=== PATIENT | male | born 1965 | race Two or more races ===

== ENCOUNTER 2023-07-04 11:29 | Inpatient (IN) | payer MEDICAID ==
[~2023-07-04] VITALS: Ht 175.3 cm; Wt 91.0 kg
[2023-07-04 12:19] LABS: ANION GAP 7 mmol/L (8-16); CALCIUM, TOTAL 9.5 mg/dL (8.8-10.5); CARBON DIOXIDE 29 mmol/L (22-29); CHLORIDE 102 mmol/L (98-107); CREATININE 0.96 mg/dL (0.60-1.30); GLOMERULAR FILTR. RATE CALC > 60 mL/min (>60); GLUCOSE,RANDOM 156 mg/dL (70-110); POTASSIUM 4.2 mmol/L (3.5-5.1); SODIUM SERUM 138 mmol/L (136-145); UREA NITROGEN, BLOOD 17 mg/dL (7-18)
[2023-07-04 12:25] LABS: ALANINE AMINOTRANSFERASE 20 U/L (12-78); ALBUMIN 3.4 g/dL (3.4-5.0); ALKALINE PHOSPHATASE 70 U/L (46-116); ASPARTATE AMINOTRANSFERASE 16 U/L (15-37); BILIRUBIN,TOTAL 0.3 mg/dL (0.1-1.0); TOTAL PROTEIN, SERUM 7.8 g/dL (6.4-8.2)
[2023-07-04 12:30] LABS: TROPONIN I-HIGH SENSITIVITY 2158 ng/L (<76)
[2023-07-04 12:33] LABS: HEMATOCRIT 40.5 % (41-53); HEMOGLOBIN 13.8 g/dL (13.5-17.5); MEAN CORPUSCULAR HEMOGLOBIN 29.3 pg (26.0-34.0); MEAN CORPUSCULAR HGB CONC 34.2 G/dL (31.0-37.0); MEAN CORPUSCULAR VOLUME 86 fL (80-100); PLATELET COUNT (AUTO) 334 K/uL (150-450); RED BLOOD CELL COUNT(AUTO) 4.72 MIL/uL (4.50-5.90); RED CELL DISTRIBUTION WIDTH 13.2 % (11.5-14.5); WHITE BLOOD COUNT (AUTO) 8.7 K/uL (4.5-11.0)
[2023-07-04] MEDS: NITROGLYCERIN 2% (1 GM=INCH) OINTMENT PACKET TP ONE (12:52)
[2023-07-04] MEDS: ASPIRIN 325 MG TABLET PO ONE (12:52)
[2023-07-04 12:59] LABS: CHOL/HDL RATIO 5.7 (4.2-7.3); CHOLESTEROL 195 mg/dL (131-200); HDL CHOLESTEROL 34 mg/dL (40-60); LDL CHOL (CALC.) 127 mg/dL (0-130); LIPASE 37 U/L (16-77); TRIGLYCERIDES 169 mg/dL (15-150)
[2023-07-04 13:01] LABS: PROTHROMBIN TIME 10.8 SEC (9.4-11.6)
[2023-07-04 13:11] LABS: BAND NEUTROPHILS % (MANUAL) 5 % (0-5); LYMPHOCYTES % (MANUAL) 24 % (22-44); MONOCYTES % (MANUAL) 1 % (2-9); SEGMENTED NEUTROPHILS % 70 % (40-70); TOTAL CELLS COUNTED 100
[2023-07-04 13:31] LABS: LACTIC ACID 1.3 mmol/L (0.4-2.0)
[2023-07-04 13:36] LABS: TROPONIN I-HIGH SENSITIVITY 2483 ng/L (<76)
[2023-07-04] MEDS ORDERED: BISACODYL 10 MG RECTAL RECTAL SUPPOSITORY PR PRN (15:45)
[2023-07-04] MEDS ORDERED: ACETAMINOPHEN 325 MG TABLET PO PRN (15:45)
[2023-07-04] MEDS ORDERED: MAGNESIUM HYDROXIDE SUSPENSION 30 ML UDCUP PO PRN (15:45)
[2023-07-04] MEDS ORDERED: ONDANSETRON HCL 4 MG/2 ML VIAL IVP PRN (15:45)
[2023-07-04] MEDS ORDERED: MORPHINE SULFATE 2 MG/ML SYRINGE IVP PRN (15:45)
[2023-07-04] MEDS ORDERED: HEPARIN SODIUM,PORCINE 5,000 UNITS/ML VIAL IVP PRN ×2 (15:45)
[2023-07-04] MEDS ORDERED: HYDROCODONE/ACETAMINOPHEN 5-325 MG TABLET PO PRN (15:45)
[2023-07-04] MEDS ORDERED: ZOLPIDEM TARTRATE 5 MG TABLET PO PRN (15:45)
[2023-07-04] MEDS ORDERED: HEPARIN SODIUM,PORCINE 5,000 UNITS/ML VIAL SQ SCH (16:00)
[2023-07-04 16:24] LABS: HEMATOCRIT 40.2 % (41-53); HEMOGLOBIN 13.8 g/dL (13.5-17.5); MEAN CORPUSCULAR HEMOGLOBIN 29.4 pg (26.0-34.0); MEAN CORPUSCULAR HGB CONC 34.4 G/dL (31.0-37.0); MEAN CORPUSCULAR VOLUME 85 fL (80-100); PLATELET COUNT (AUTO) 342 K/uL (150-450); RED BLOOD CELL COUNT(AUTO) 4.71 MIL/uL (4.50-5.90); RED CELL DISTRIBUTION WIDTH 13.1 % (11.5-14.5); WHITE BLOOD COUNT (AUTO) 9.5 K/uL (4.5-11.0)
[2023-07-04 16:37] LABS: PROTHROMBIN TIME 10.9 SEC (9.4-11.6)
[2023-07-04 17:13] LABS: BAND NEUTROPHILS % (MANUAL) 0 % (0-5)
[2023-07-04 17:14] LABS: EOSINOPHILS % (MANUAL) 8 % (1-6); LYMPHOCYTES % (MANUAL) 22 % (22-44); MONOCYTES % (MANUAL) 4 % (2-9); SEGMENTED NEUTROPHILS % 66 % (40-70); TOTAL CELLS COUNTED 100
[2023-07-04 18:17] LABS: COVID AG,FIA SOURCE NASAL SWAB
[2023-07-04 18:47] LABS: SARS-COV2 (COVID) ANTIGEN,FIA Negative (Negative)
[2023-07-04 18:49] VITALS: BP 123/62; PULSE 58; RESP 18; TEMP 98.2
[2023-07-04 18:58] LABS: INFLUENZA TYPE A NEGATIVE FOR TYPE A (NEGATIVE); INFLUENZA TYPE B NEGATIVE FOR TYPE B (NEGATIVE)
[2023-07-04] MEDS: HEPARIN SODIUM,PORCINE 5,000 UNITS/ML VIAL IVP ONE (19:03)
[2023-07-04] MEDS ORDERED: PNEUMOCOCCAL VACCINE POLYVALENT 0.5 ML SYRINGE [PPSV23] IM. ONE (19:15)
[2023-07-04 20:15] VITALS: BP 109/57; PULSE 62; RESP 18; TEMP 98
[2023-07-04] MEDS: DOCUSATE SODIUM 100 MG CAPSULE PO SCH (21:00)
[2023-07-04] MEDS ORDERED: ATORVASTATIN CALCIUM 20 MG TABLET PO SCH (21:00)
[2023-07-04] MEDS: HEPARIN SODIUM 25000 UNITS/D5W 250 ML IV PRN (22:40)
[2023-07-05] VITALS (12 sets, daily range): BP systolic 105–132; BP diastolic 57–70; PULSE 5–87; RESP 16–18; TEMP 97.2–99
[2023-07-05] MEDS ORDERED: VERAPAMIL HCL 2.5 MG/ML 2 ML VIAL ONE (06:58)
[2023-07-05] MEDS ORDERED: LIDOCAINE/PF 1% 30 ML VIAL ONE (06:59)
[2023-07-05] MEDS ORDERED: NITROGLYCERIN 50 MG/D5% WATER 250 ML ONE (06:59)
[2023-07-05] MEDS ORDERED: HEPARIN SODIUM 1000 UNITS/NS 1,000 ML ONE (06:59)
[2023-07-05] MEDS ORDERED: IOHEXOL 300 MG/ML 100 ML VIAL ONE (06:59)
[2023-07-05] MEDS ORDERED: SODIUM BICARBONATE 50 MEQ/50 ML VIAL ONE (06:59)
[2023-07-05 07:27] LABS: BASOPHILS % (AUTO) 0.2 % (0.0-2.0); EOSINOPHILS % (AUTO) 7.2 % (1.0-6.0); HEMATOCRIT 38.7 % (41-53); HEMOGLOBIN 13.3 g/dL (13.5-17.5); LYMPHOCYTES # (AUTO) 2.3 K/uL (1.0-4.8); LYMPHOCYTES % (AUTO) 17.5 % (22.0-44.0); MEAN CORPUSCULAR HEMOGLOBIN 29.6 pg (26.0-34.0); MEAN CORPUSCULAR HGB CONC 34.4 G/dL (31.0-37.0); MEAN CORPUSCULAR VOLUME 86 fL (80-100); MONOCYTES # (AUTO) 0.4 K/uL (0.1-1.0); MONOCYTES % (AUTO) 2.9 % (2.0-9.0); NEUTROPHILS # (AUTO) 9.5 K/uL (1.8-7.7); NEUTROPHILS % (AUTO) 72.2 % (40.0-70.0); PLATELET COUNT (AUTO) 364 K/uL (150-450); WHITE BLOOD COUNT (AUTO) 13.2 K/uL (4.5-11.0)
[2023-07-05] MEDS ORDERED: FentaNYL CITRATE PF 100 MCG/2 ML VIAL ONE (07:45)
[2023-07-05] MEDS ORDERED: MIDAZOLAM HCL 2 MG/2 ML VIAL ONE (07:46)
[2023-07-05 07:54] LABS: ANION GAP 6 mmol/L (8-16); CALCIUM, TOTAL 8.8 mg/dL (8.8-10.5); CARBON DIOXIDE 28 mmol/L (22-29); CHLORIDE 101 mmol/L (98-107); CHOL/HDL RATIO 6.4 (4.2-7.3); CHOLESTEROL 199 mg/dL (131-200); CREATININE 0.99 mg/dL (0.60-1.30); GLOMERULAR FILTR. RATE CALC > 60 mL/min (>60); GLUCOSE,RANDOM 116 mg/dL (70-110); HDL CHOLESTEROL 31 mg/dL (40-60); LDL CHOL (CALC.) 137 mg/dL (0-130); SODIUM SERUM 135 mmol/L (136-145); TRIGLYCERIDES 155 mg/dL (15-150); UREA NITROGEN, BLOOD 19 mg/dL (7-18)
[2023-07-05 08:08] LABS: TROPONIN I-HIGH SENSITIVITY 1974 ng/L (<76)
[2023-07-05] MEDS: VERAPAMIL HCL 2.5 MG/ML 2 ML VIAL IARTER ONE (08:26)
[2023-07-05] MEDS: HEPARIN SODIUM,PORCINE 1,000 UNITS/ML 10 ML VIAL IARTER ONE (08:26)
[2023-07-05] MEDS: LIDOCAINE 1% 30 ML/SOD BICARB 8.4% 4 ML SQ ONE (08:27)
[2023-07-05] MEDS: NITROGLYCERIN/D5W 50 MG/250 ML IV BOTTLE IARTER ONE (08:27)
[2023-07-05] MEDS: SODIUM CHLORIDE 0.9% 500 ML IV ONE (08:28)
[2023-07-05] MEDS: IOHEXOL 300 MG/ML 100 ML VIAL IARTER ONE (08:28)
[2023-07-05] MEDS: MIDAZOLAM HCL 2 MG/2 ML VIAL IVP ONE (08:57)
[2023-07-05] MEDS: FentaNYL CITRATE PF 100 MCG/2 ML VIAL IVP ONE (08:58)
[2023-07-05] MEDS: HEPARIN SODIUM 2,000 UNITS in HEPARIN SODIUM 1000 UNITS/NS 1,000 ML IARTER ONE (08:58)
[2023-07-05] MEDS: HEPARIN SODIUM,PORCINE 1,000 UNITS/ML 10 ML VIAL IVP ONE (08:59)
[2023-07-05] MEDS ORDERED: ASPIRIN 81 MG CHEWABLE TABLET PO SCH (09:00)
[2023-07-05] MEDS ORDERED: PRASUGREL HCL 10 MG TABLET ONE (09:06)
[2023-07-05] MEDS: PRASUGREL HCL 10 MG TABLET PO ONE (09:15)
[2023-07-05] MEDS: ATORVASTATIN CALCIUM 40 MG TABLET PO SCH (10:29)
[2023-07-05] MEDS: ASPIRIN 81 MG CHEWABLE TABLET PO SCH (10:30)
[2023-07-05] MEDS: PANTOPRAZOLE SODIUM 40 MG DR TABLET PO SCH (10:30)
[2023-07-06] VITALS: BP 133/76; PULSE 61; RESP 19
[2023-07-06] MEDS: FUROSEMIDE 20 MG/2 ML VIAL IVP ONE (02:43)
[2023-07-06 04:26] LABS: BASOPHILS % (AUTO) 0.6 % (0.0-2.0); EOSINOPHILS % (AUTO) 8.4 % (1.0-6.0); HEMATOCRIT 41.7 % (41-53); HEMOGLOBIN 14.3 g/dL (13.5-17.5); LYMPHOCYTES # (AUTO) 2.2 K/uL (1.0-4.8); LYMPHOCYTES % (AUTO) 21.6 % (22.0-44.0); MEAN CORPUSCULAR HEMOGLOBIN 29.2 pg (26.0-34.0); MEAN CORPUSCULAR HGB CONC 34.2 G/dL (31.0-37.0); MEAN CORPUSCULAR VOLUME 85 fL (80-100); MONOCYTES # (AUTO) 0.4 K/uL (0.1-1.0); MONOCYTES % (AUTO) 4.3 % (2.0-9.0); NEUTROPHILS # (AUTO) 6.6 K/uL (1.8-7.7); NEUTROPHILS % (AUTO) 65.1 % (40.0-70.0); PLATELET COUNT (AUTO) 392 K/uL (150-450); RED CELL DISTRIBUTION WIDTH 13.1 % (11.5-14.5); WHITE BLOOD COUNT (AUTO) 10.2 K/uL (4.5-11.0)
[2023-07-06 04:58] VITALS: BP 105/63; PULSE 58; RESP 19
[2023-07-06 05:20] LABS: TROPONIN I-HIGH SENSITIVITY 2262 ng/L (<76)
[2023-07-06 07:47] VITALS: BP 119/71; PULSE 44; RESP 18; TEMP 97.8
[2023-07-06] MEDS: PRASUGREL HCL 10 MG TABLET PO SCH (09:21)
[2023-07-06 10:54] LABS: TROPONIN I-HIGH SENSITIVITY 2210 ng/L (<76)
[2023-07-06 11:20] VITALS: BP 115/67; PULSE 57; RESP 18; TEMP 97.9
[2023-07-06] MEDS ORDERED: ATOR40TA71 PO (12:39)
[2023-07-06] MEDS ORDERED: ASPI-1450 PO (12:39)
[2023-07-06] MEDS ORDERED: PRAS10TA6 PO (12:39)
[2023-07-06 14:41] VITALS: BP 123/66; PULSE 62; RESP 18; TEMP 97.7
== END 2023-07-06 16:00 | disposition home or self-care (01) | DRG 174 ==
LOC: EMS 11:29 → 5S 14:50
PROVIDERS: ADMIT Internal Medicine; ATTEND Internal Medicine
PROC: 4A023N8 Measurement of Cardiac Sampling and Pressure, Bilateral, Percutaneous Approach (ICD-10-PCS; principal; 2023-07-05)
PROC: 027034Z Dilation of Coronary Artery, One Artery with Drug-eluting Intraluminal Device, Percutaneous Approach (ICD-10-PCS; 2023-07-05)
PROC: B216YZZ Fluoroscopy of Right and Left Heart using Other Contrast (ICD-10-PCS; 2023-07-05)
DX: I21.4 Non-ST elevation (NSTEMI) myocardial infarction (principal); E78.5 Hyperlipidemia, unspecified; I10 Essential (primary) hypertension; I25.10 Atherosclerotic heart disease of native coronary artery without angina pectoris; Z82.49 Family history of ischemic heart disease and other diseases of the circulatory system; Z79.899 Other long term (current) drug therapy
CPT/HCPCS: 71045; 80048; 80053; 80061; 83036; 83605; 83690; 84484; 85025; 85610; 85730; 87804; 92920; 92928; 93005; 93306; 99291; J1644; J1940; J2250; J3010; J3490; Q9967; 36415-L1; 36415-TC; Z7610